=== PATIENT | female | born 1975 | race Caucasian/White ===

== ENCOUNTER 2016-10-06 18:35 | Emergency (ER) | payer SELFPAY ==
[~2016-10-06] VITALS: Ht 162.6 cm; Wt 63.5 kg
[2016-10-06 18:43] VITALS: Ht 162.6 cm; Wt 63.5 kg
[2016-10-06] MEDS ORDERED: AMO500 PO (18:58)
[2016-10-06] MEDS ORDERED: NPH10OT RIGHT EAR (18:58)
[2016-10-06] MEDS ORDERED: IBUP-1542 PO (18:58)
--- NOTE | 2016-10-06 19:03 | ERD ---
ER Documentation Chief Complaint Date/Time DATE: 10/06/16 TIME: 19:01 Chief Complaint right ear pain, sore throat HPI This is a 41-year-old female presenting to the emergency department complaining of severe right ear pain and sore throat for the past 3 days. Patient denies any drainage. She denies taking any medications for this. She also admits to congestion. ROS All systems reviewed and are negative except as per history of present illness. Medications Home Meds Active Scripts Ibuprofen* (Ibuprofen*) 600 Mg Tablet, 600 MG PO Q6H Y for PAIN AND OR ELEVATED TEMP, #30 TAB Prov:JONO MITCHELL PA-C 10/06/16 Neomycin/Polymyxin/Hydrocort* (Cortisporin* Otic) 10 Ml Susp, 4 DROP RIGHT EAR QID for 7 Days, EA Prov:JONO MITCHELL PA-C 10/06/16 Amoxicillin* (Amoxicillin*) 500 Mg Cap, 500 MG PO BID for 10 Days, CAP Prov:JONO MITCHELL PA-C 10/06/16 Allergies Allergies: Coded Allergies: No Known Allergy (Unverified , 05/06/13) PMhx/Soc Hx Alcohol Use: No Hx Substance Use: No Hx Tobacco Use: No Physical Exam Vitals Vital Signs Date Time Temp Pulse Resp B/P Pulse Ox O2 Delivery O2 Flow Rate FiO2 10/06/16 18:43 99.6 88 20 126/59 98 Physical Exam GENERAL: well-developed/well-nourished, in no apparent distress, non-toxic appearing HEAD: NC/AT, no swelling noted in frontal or maxillary areas EARS: Right tympanic membrane is erythematous and bulging, erythema in the ear canal plus positive tragus tenderness, left tympanic membrane is intact without erythema or effusion NARES: Congested THROAT: oropharynx erythematous without exudates, no tonsil enlargement, post nasal drip EYES: Conjunctiva normal NECK: Supple, no lymphadenopathy PULM: CTA bilaterally, no rales, rhonchi, or wheezing heard CV: Normal S1S2, RRR, good capillary refill GI: Soft, non-distended, normal bowel sounds, non-tender BACK: No midline tenderness, no masses EXT No clubbing, cyanosis, or edema NEURO: Alert and Orientated SKIN: Intact, normal turgor PSYCH: Normal mood and mentation Procedures/MDM This is a 41-year-old female presenting to the emergency department with right ear pain likely due to otitis media. On examination the right to my memory was erythematous.. Symptoms consistent with acute otitis media Differentials included otitis externa, myringitis, mastoiditis, cholesteatoma, and tympanic membrane perforation. Patient was given medications in the ER, fever trended downwards and table for discharge. hemodynamically stable. Prescription for Amoxicillin and motrin was given to patient. Discussed to return to the ED for worsening condition or not improving as expected. Patient's agreed and understood with this plan Departure Diagnosis: Primary Impression: Otitis media Condition: Stable Patient Instructions: External Ear Infection (Adult) Additional Instructions: Visite a self eliot diaz para un EXAMEN.Regrese a estas instalaciones si no se mejora bebe esperbamos o bbee le dijimos. [place] toda la medicina andres y bebe se le indic. Regrese a estas instalaciones si no se mejora bebe esperbamos o bebe le dijimos. JONO MITCHELL PA-C Oct 06, 2016 19:03
== END 2016-10-06 18:59 | disposition home or self-care (01) ==
LOC: E/R 18:35
DX: H66.92 Otitis media, unspecified, left ear (principal)
CPT/HCPCS: 99283